=== PATIENT | male | born 1980 | race Two or more races ===

== ENCOUNTER 2021-02-08 21:12 | Emergency (ER) | payer OTHER ==
[~2021-02-08] VITALS: Ht 165.1 cm; Wt 72.6 kg
[~2021-02-08 21:12] MED LIST: NORFLEX30 MG/ML
== END 2021-02-08 23:25 | disposition home or self-care (01) ==
LOC: ER 21:12
DX: S20.211A Contusion of right front wall of thorax, initial encounter (principal); M94.0 Chondrocostal junction syndrome [Tietze]; V19.9XXA Pedal cyclist (driver) (passenger) injured in unspecified traffic accident, initial encounter; Y93.89 Activity, other specified; Y92.89 Other specified places as the place of occurrence of the external cause; Y99.8 Other external cause status

== ENCOUNTER 2021-06-22 22:35 | Emergency (ER) | payer OTHER ==
[~2021-06-22] VITALS: Ht 167.6 cm; Wt 74.8 kg
[2021-06-23] MEDS ORDERED: KETO10TA2 PO (02:21)
== END 2021-06-23 02:34 ==
LOC: ER 22:35
DX: M25.512 Pain in left shoulder (principal); M75.32 Calcific tendinitis of left shoulder